=== PATIENT | female | born 1960 | race African-American/Black ===

== ENCOUNTER 2023-01-17 15:11 | Outpatient (AMB) | payer OTHER, SELFPAY ==
--- NOTE | 2023-01-17 16:14 | MHC.OFFWIV ---
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 Patient Tobacco Use Status: Never used Tobacco Allergies Penicillins Adverse Reaction (Verified 01/18/23 11:00) unknown metformin Adverse Reaction (Intermediate, Uncoded 01/18/23 11:00) unknown Medication List - Last Reconciled 01/18/23 by Reji Kincaid MD azithromycin take 500 mg today (day 1), then 250 mg for 4 days (days 2-5) PO fluticasone propion-salmeterol 115-21 mcg/actuation (Advair HFA) 2 puffs inhalation BID fluticasone propionate 50 mcg/actuation sprays intranasal hydrochlorothiazide 12.5 mg PO DAILY loratadine 10 mg PO DAILY Do you need a note to return to daycare/school/sports/work: Yes HPI PACKAGING LINE ATTENDANT Cough, Congestion, Headache HPI Details Patient presents for a sick visit. Reporting symptoms of sinus congestion, sore throat and difficulty swallowing. Low-grade fever. No family member is sick. No recent travel. Patient reports symptoms of malaise and fatigue. PFSH Social History Patient Tobacco Use Status: Never used Tobacco Physical Exam Vital Signs: Last Vital Signs Temp 98.7 F 01/17/23 16:16 Pulse 90 01/17/23 16:16 BP 120/80 01/17/23 16:16 Pulse Ox 94 01/17/23 16:16 Oxygen Delivery Method Room Air 01/17/23 16:16 BMI result Body Mass Index 27.4 Const General: cooperative and healthy appearing Nutritional Appearance: well nourished Orientation/consciousness: patient oriented x3 Limitations: no limitations HEENT Head: Yes normal to inspection Eyes General: appearance normal, both eyes and all related structures Neck Neck: Yes normal visual inspection Chest Chest palpation & inspection: normal palpation of entire chest wall Resp Effort & Inspection: normal respiratory effort Neuro General: patient oriented x3 Assessment & Plan Assessment & Plan (1) Upper respiratory tract infection: Code(s): J06.9 - Acute upper respiratory infection, unspecified Plan: Antibiotics ordered. Increase fluid intake. Tylenol for aches and pains. If symptoms worsen, follow-up here for a recheck. Will call with results of the COVID testing. Orders: Orders SARS-CoV2/FLU/RSV 01/17/23 R43.9 - Unspecified disturbances of smell and taste Medications: New azithromycin take 500 mg today (day 1), then 250 mg for 4 days (days 2-5) PO 6 tabs 0RF Coding Level of Care Code Est Pt Level 3 (06809) Diagnoses Upper respiratory tract infection J06.9
[2023-01-17 16:16] VITALS: BP 120/80; PULSE 90; TEMP 37.1; O2SAT 94; BMI 27.4
== END 2023-01-17 16:58 | disposition home or self-care (01) ==
PROVIDERS: PCP Internal Medicine; Visit Provider Internal Medicine
DX: J06.9 Acute upper respiratory infection, unspecified (principal)
CPT/HCPCS: 99213

== ENCOUNTER 2023-01-17 15:11 | Outpatient (REF) | payer OTHER, SELFPAY ==
[2023-01-18 14:41] LABS: Influenza A PCR NEGATIVE (Negative); Influenza B PCR NEGATIVE (Negative); Resp Syncy Virus RNA Qual PCR NEGATIVE (Negative); SARS COV2 PCR INHOUSE NEGATIVE (Negative)
== END 2023-01-17 15:12 | disposition home or self-care (01) ==
LOC: HO.LNP 15:11
PROVIDERS: Visit Provider Internal Medicine
DX: Z11.52 Encounter for screening for COVID-19 (principal); Z20.822 Contact with and (suspected) exposure to COVID-19; R43.9 Unspecified disturbances of smell and taste
CPT/HCPCS: 0241U

== ENCOUNTER 2023-03-23 13:50 | Outpatient (AMB) | payer OTHER, SELFPAY ==
[2023-03-23 13:50] VITALS: BP 126/78; PULSE 94; TEMP 36.7; O2SAT 96; BMI 26.7
--- NOTE | 2023-03-23 13:50 | AM.OFFWIN_ITS ---
Intake Vital Signs 03/23/23 13:50 Height 5 ft 2 in Weight 146 lb BMI 26.7 BP 126/78 Blood Pressure Location Lt brachial Position Sitting Pulse 94 Pulse Source Pulse Oximeter Temp 98.1 F Temp Source Temporal Artery Scan Pulse Oximetry (%) 96 Oxygen Delivery Method Room Air Intake Visit Reasons: EST/ flu? bronchitis/cough(lobby masked) Intake Note: pt is here today for flu,bronchitis cough started 12-15 Patient Tobacco Use Status: Never used Tobacco Allergies Penicillins Adverse Reaction (Verified 03/23/23 13:55) unknown metformin Adverse Reaction (Intermediate, Uncoded 01/18/23 11:00) unknown Do you need a note to return to daycare/school/sports/work: Yes HPI HPI Comments History of Present Illness Details Patient is a 62-year-old female in today for a sick visit. She has a past medical history significant for asthma. She is employed at [employer] and states that she started to develop symptoms of chest congestion, subjective fever, cough, sore throat, sinus tenderness after spending time in the ED. She had a respiratory swab performed at [employer] and brought the results with her which demonstrated that she was positive for influenza type a. This upper respiratory swab was collected earlier in the day today. She has been coughing up green and yellow expectorant, was able to produce a sample during the office visit, and has been confirmed the patient is indeed coughing up green phlegm. She is getting some relief with Mucinex, her albuterol inhaler, and medications that were prescribed her a [facility] which include benzonatate and prednisone. She denies dizziness, chest pain, shortness a breast, numbness, vomiting, or diarrhea. REPLACED BY [facility] Social History Patient Tobacco Use Status: Never used Tobacco Review of Systems Const Details: Constitutional : Admits some Weight loss, Admits Fever, No Chills, Admits Fatigue, No Malaise ENT/Mouth : Admits sore throat, sinus tenderness, ear fullness. Eyes: No Eye Pain, No Swelling, No Redness Cardiovascular : No Chest Pain, No SOB, No Dyspnea on Exertion, No Orthopnea, No Edema, No Palpitations Respiratory : Admits Cough, Admits Sputum, Admits Wheezing Gastrointestinal : No Nausea, No Vomiting, No Diarrhea, No Constipation, No abdominal Pain, No Hematochezia, No Melena Neuro : No Weakness, No Numbness, No Dizziness, No Headache All other systems reviewed and are negative Physical Exam Vital Signs: Last Vital Signs Temp 98.1 F 03/23/23 13:50 Pulse 94 03/23/23 13:50 BP 126/78 03/23/23 13:50 Pulse Ox 96 03/23/23 13:50 Oxygen Delivery Method Room Air 03/23/23 13:50 BMI result Body Mass Index 26.7 Vital signs reviewed and are stable Const Other: Appearance: Alert.? Oriented X3.? No acute distress.? Eyes: Pupils equal, round and reactive to light.? ENT: Pharynx cobblestoned with erythema. TM bilateral effusion without erythema. Patient has white curdled patches on tongue. Neck: Normal inspection.? Neck supple.?Full ROM CVS: Normal heart rate and rhythm.? Pulses normal.? Respiratory: Upper lobe bilateral wheeze. Green/Yellow mucus production while in office. ? Neuro: Oriented X 3.? No motor deficit.? No sensory deficit. CN 2-12 intact Results Reviewed Results Reviewed: Will call patient with x-ray results. Assessment & Plan Assessment & Plan (1) Upper respiratory tract infection: Comment: Patient will be given azithromycin to be taken as directed. Patient has been educated on side effects of this medications and had taken properly. She has been educated on signs of worsening symptoms and when to return to the walk-in or when to report to the emergency room Code(s): J06.9 - Acute upper respiratory infection, unspecified Qualifiers: URI type: unspecified URI Qualified Code(s): J06.9 - Acute upper respiratory infection, unspecified Plan: Take your medications as prescribed. If you were prescribed antibiotics today, it is important that you take your medication to their entirety, do not skip any doses, do not finish them early. Follow-up with your primary care provider this week. Return to the emergency department with new or worsening symptoms. Such as fevers, chills, chest pain, shortness of breath, nausea, vomiting, dizziness, headache, vision changes, lethargy In case of emergency call 911 (2) Candidiasis of mouth: Comment: Will prescribe ketoconazole swish solution to be taken as directed. Code(s): B37.0 - Candidal stomatitis Plan: Patient has been instructed to follow-up with PCP. Orders: Orders Comprehensive Met. Panel Today J06.9 - Acute upper respiratory infection, unspecified XR chest 2V Today J18.9 - Pneumonia, unspecified organism Complete Blood Count Auto Diff Today J06.9 - Acute upper respiratory infection, unspecified Medications: Refilled azithromycin take 12.5 mL (500 mg) by mouth today (day 1), then 6.25 mL (250 mg) daily for 4 days (days 2-5) PO 15 mL 0RF Discontinued azithromycin Discontinued Reason: Patient Completed Course take 12.5 mL (500 mg) by mouth today (day 1), then 6.25 mL (250 mg) daily for 4 days (days 2-5) PO 15 mL 0RF Coding Level of Care Code Est Pt Level 3 (68714) Diagnoses Upper respiratory tract infection, unspecified type J06.9 URI type: unspecified URI Candidiasis of mouth B37.0 Time Spent (min) 35
== END 2023-03-23 15:37 | disposition home or self-care (01) ==
PROVIDERS: PCP Internal Medicine; Visit Provider Nurse Practitioner Primary Care
DX: J06.9 Acute upper respiratory infection, unspecified (principal); B37.0 Candidal stomatitis
CPT/HCPCS: 99214

== ENCOUNTER 2023-03-23 14:45 | Outpatient (REF) | payer OTHER, SELFPAY ==
--- NOTE | ~2023-03-23 | XR_ITS ---
EXAMINATION: XR CHEST CLINICAL INFORMATION: Shortness of breath. Concern for pneumonia. COMPARISON: None available. TECHNIQUE: 2 views of the chest were obtained. FINDINGS: No significant abnormality is noted involving the heart, lungs, mediastinum, bony thorax or soft tissues. XR/XR chest 2V IMPRESSION: Unremarkable examination.
[2023-03-23 16:52] LABS: Basophils Percent Auto 0.6 % (0-2); Eosinophils Percent Auto 0.3 % (0-4); Hematocrit 38.4 % (37.0-47.0); Hemoglobin 12.7 g/dl (12.0-16.0); Lymphocytes Absolute Auto 1.7 X10*3/uL (1.2-4.9); Lymphocytes Percent Auto 52.6 % (20-40); MANUAL DIFF FLAG SCAN; Mean Corpuscular HGB Conc 33.1 g/dl (31.0-35.0); Mean Corpuscular Volume 81.7 fL (80.0-98.0); Mean Platelet Volume 11.1 fL (9.4-12.3); Monocytes Absolute Auto 0.5 X10*3/uL (0.1-1.2); Monocytes Percent Auto 16.2 % (2-11); Neutrophils Percent Auto 30.3 % (45-73); Platelet Count 224 X10*3/uL (160-400); Red Cell Distribution Width 15.2 % (11.0-16.0); SCAN SMEAR FLAG 1; White Blood Count 3.3 X10*3/uL (4.8-10.8)
[2023-03-23 17:32] LABS: SLIDE REVIEW VERIFIED
[2023-03-23 17:33] LABS: Alanine Aminotransferase 19 U/L (0-31); Albumin Level 4.3 g/dL (3.5-5.0); Alkaline Phosphatase 57 U/L (39-117); Anion Gap 16 (12-20); Aspartate Amino Transferase 38 U/L (5-31); Bilirubin Total 0.5 mg/dL (0.0-1.0); Blood Urea Nitrogen 12 mg/dL (9-16); Calcium 9.5 mg/dL (8.4-10.2); Carbon Dioxide 31 mmol/L (22-29); Chloride 98 mmol/L (96-108); Estimated Glomerular Filt Rate > 60; Glucose Random 129 mg/dL (60-115); Potassium 3.5 mmol/L (3.3-5.1); Sodium 141 mmol/L (135-145); Total Protein 7.8 g/dL (6.5-8.0)
== END 2023-03-23 14:46 | disposition home or self-care (01) ==
LOC: HO.HMGCX 14:45
PROVIDERS: Visit Provider Nurse Practitioner Primary Care
DX: J06.9 Acute upper respiratory infection, unspecified (principal); J18.9 Pneumonia, unspecified organism
CPT/HCPCS: 36415; 71046; 80053; 85025

== ENCOUNTER 2024-11-26 14:59 | Outpatient (AMB) | payer OTHER, SELFPAY ==
[2024-11-26 15:52] VITALS: BP 124/76; PULSE 72; TEMP 37.1; O2SAT 97; BMI 27.4
--- NOTE | 2024-11-26 15:52 | AM.OFFWIN_ITS ---
Intake Vital Signs 11/26/24 15:52 Height 5 ft 2 in Weight 150 lb BMI 27.4 BP 124/76 Blood Pressure Location Lt brachial Position Sitting Pulse 72 Pulse Source Pulse Oximeter Temp 98.8 F Temp Source Oral Pulse Oximetry (%) 97 Oxygen Delivery Method Room Air Intake Visit Reasons: EP-abd pain, nauseas, diarrhea Intake Note: pt presents with lower pelvic pain, nauseous, frequent bowel movements, Patient Tobacco Use Status: Never used Tobacco Allergies propoxyphene (From Darvon) Allergy (Severe, Verified 11/26/24 16:10) dizzy, loopy Sulfa (Sulfonamide Antibiotics) Allergy (Severe, Verified 11/26/24 16:10) hyperglycemic adhesive tape Allergy (Mild, Verified 11/26/24 16:10) Rash latex Allergy (Mild, Verified 11/26/24 16:10) dyspnea tetracycline Allergy (Mild, Verified 11/26/24 16:10) Unknown bismuth subsalicylate (From Pepto-Bismol) Adverse Reaction (Intermediate, Verified 11/26/24 16:10) turns mouth black Penicillins Adverse Reaction (Verified 11/26/24 16:10) unknown metformin Adverse Reaction (Intermediate, Uncoded 01/18/23 11:00) unknown Do you need a note to return to daycare/school/sports/work: Yes HPI HPI Comments History of Present Illness Details 64 y/o Female patient who presents to [facility] walk in clinic today for c/o Generalized abdominal pain associated with Nausea, vomiting, Frequent bowel movements and lower pelvic pain. She just returned from [place] for Vacation when symptoms start. She was seen and evaluated by her PCP this month, who ordered Stool culture to r/o Parasites - because she Drank water in [place] that was contaminated. Pt is still waiting for The results. She does have h/o IBS and GERD. She takes Pepcid for GERD and unknown Medicine for IBS. Pt presents to the clinic asking for Abdominal U/S - because when she called the Hospital to inquire if we could do one at the Walk in clinic - she was told that we could order a STAT U/S for her in office. Unfortunately I informed her that the Only STAT U/S that we allowed to order in [facility] is DOppler U/S to r/o DVTs. [facility] Medical History (Updated 11/26/24 @ 16:54 by Amy Segura NP) Generalized abdominal pain Social History Patient Tobacco Use Status: Never used Tobacco Review of Systems Const All systems reviewed & are unremarkable except as noted in HPI and below Physical Exam Vital Signs: Last Vital Signs Temp 98.8 F 11/26/24 15:52 Pulse 72 11/26/24 15:52 BP 124/76 11/26/24 15:52 Pulse Ox 97 11/26/24 15:52 Oxygen Delivery Method Room Air 11/26/24 15:52 BMI result Body Mass Index 27.4 Const General: no acute distress; No comfortable Nutritional Appearance: well nourished Orientation/consciousness: patient oriented x3 GI Inspection: Yes distended Palpation (GI): Soft to palpation, not firm, Tenderness to palpation present (GI), no guarding and not rigid Neuro General: patient oriented x3, gait normal and moves all extremities Psych Speech and movement: Normal speech and movement present Assessment & Plan Assessment & Plan (1) Generalized abdominal pain: Code(s): R10.84 - Generalized abdominal pain Plan: Due to her h/o IBS and presenting symptoms today, advised Pt to go to ED for further testing. Pt also has a PCP outside [facility] - advised to call the office to inquire the results of stool culture. Coding Level of Care Code Est Pt Level 4 (67255) Diagnoses Generalized abdominal pain R10.84 Time Spent (min) 20
--- OUTSIDE RECORDS SUMMARY | 2024-11-26 16:41 | XMS_ITS | Clinical Summary ---
Author Organization [facility] Address [address] [place] [address] Care Team Providers Care Customer Engagement Representative Name Role Phone Remy Moser MD Primary Care Provider [phone] Social History Tobacco Use Types Packs/Day Years Used Date Smoking Tobacco: Never Assessed Comments Unknown Sex and Gender Information Value Date Recorded Sex Assigned at Not on file Legal Sex Female 8:22 PM EST Gender Identity Not on file Sexual Orientation Not on file Plan of Treatment Health Maintenance Due Date Last Done Comments Breast Cancer Screening 1960 DTaP,Tdap,and Td Vaccines (1 - Tdap) 08/25/1979 Cervical Cancer Screening: P ap Smear 1981 Pneumococcal Vaccine: 50+ Ye ars (1 of 1 - PCV) 2010 Zoster Vaccines (1 of 2) 2010 Colorectal Cancer Screening: Colonoscopy 03/06/2022 HIV Screening 03/06/2022 Hepatitis C Screening 03/06/2022 Social Influencers of Health Screening 03/06/2022 COVID-19 Vaccine (1 - 2023-2 5 season) 2023 Depression Screening 04/04/2024 Influenza Vaccine (#1) 2024 RSV Immunization Adult Patie nts (1 - 1-dose 75+ series) 08/25/2035 HIB Vaccines Aged Out No longer eligi ble based on patient's age to complete this topic HPV Vaccines Aged Out No longer eligi ble based on patient's age to complete this topic Hepatitis A Vaccines Aged Out No long er eligible based on patient's age to complete this topic Hepatitis B Vaccines Aged Out No long er eligible based on patient's age to complete this topic IPV Vaccines Aged Out No longer eligi ble based on patient's age to complete this topic MMR Vaccines Aged Out No longer eligi ble based on patient's age to complete this topic Meningococcal ACWY Vaccine Aged Out N o longer eligible based on patient's age to complete this topic Meningococcal B Vaccine Aged Out No l onger eligible based on patient's age to complete this topic RSV Immunization Patients Un glenn 20 months Aged Out No longer eligible b ased on patient's age to complete this topic Varicella Vaccines Aged Out No longer eligible based on patient's age to complete this topic Care Teams Customer Engagement Representative Relationship Specialty Start Date End Date Remy Moser MD [address] [phone] PCP - General Internal Medicine 04/29/21
== END 2024-11-26 16:49 | disposition home or self-care (01) ==
PROVIDERS: PCP Internal Medicine; Visit Provider Nurse Practitioner Family
DX: Z13.9 Encounter for screening, unspecified (principal)

== ENCOUNTER → 2024-11-26 14:59 | Outpatient (BNVA) | payer OTHER, SELFPAY | PROVIDERS: PCP Internal Medicine; Visit Provider Nurse Practitioner Family | DX: R10.84 Generalized abdominal pain (principal); K21.9 Gastro-esophageal reflux disease without esophagitis; K58.9 Irritable bowel syndrome, unspecified | CPT/HCPCS: 81003 ==